=== PATIENT | female | born 1995 | race Caucasian/White ===

== ENCOUNTER 2022-03-28 13:47 | Emergency (ER) | payer BC ==
[~2022-03-28] VITALS: Ht 172.7 cm; Wt 77.1 kg
[2022-03-28 13:47] VITALS: BP_SYST 106
--- NOTE | 2022-03-28 13:50 | NUR ---
Patient triaged and placed in waiting room. VSS and patient appears in no acute distress at this time. Accompanied by MOTHER, awaiting available bed, and MD notified of need for MSE.
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
--- NOTE | 2022-03-28 14:42 | NUR ---
DR GARAY OUT TO TRIAGE ROOM FOR EVALUATION
[2022-03-28] MEDS ORDERED: IBUP-1969 PO (14:56)
--- NOTE | 2022-03-28 15:09 | NUR ---
Patient given written and verbal discharge instructions and verbalizes understanding. ER MD discussed with patient the results and treatment provided. Patient in stable condition. ID arm band removed. Rx of IBUPROFEN given. Patient educated on pain management and to follow up with PMD. Pain Scale 0/10. Opportunity for questions provided and answered. Medication side effect fact sheet provided.
== END 2022-03-28 15:25 | disposition home or self-care (01) ==
LOC: SED 13:47
DX: S09.90XA Unspecified injury of head, initial encounter (principal); N39.0 Urinary tract infection, site not specified; R42 Dizziness and giddiness; R05.9 Cough, unspecified; Z79.899 Other long term (current) drug therapy; V00.311A Fall from snowboard, initial encounter; Y93.89 Activity, other specified; Y92.89 Other specified places as the place of occurrence of the external cause; Y99.8 Other external cause status
CPT/HCPCS: 70450-TC; 76376; 81025; 99284